=== PATIENT | female | born 1975 | race American Indian/Alaskan Native ===

== ENCOUNTER 2017-08-28 09:08 | Outpatient (CLI) | payer OTHER ==
--- NOTE | 2017-08-28 11:29 | Mammography Report ---
Bilateral Baseline digital screening mammogram with CAD. Findings: The breast parenchyma is heterogeneously dense bilaterally. In the right breast at the 3:00 position, there is a focal somewhat rounded asymmetry. No architectural distortion or suspicious microcalcifications. Impression: Left parenchymal asymmetry. BI-RADS code: 0. Recommendation: Spot compression images and ultrasound if needed.
== END 2017-08-28 09:09 | disposition home or self-care (01) ==
LOC: MAMMO 09:08
PROVIDERS: ATTEND Family Medicine
DX: Z12.31 Encounter for screening mammogram for malignant neoplasm of breast (principal)
CPT/HCPCS: 77067; G0202

== ENCOUNTER 2017-10-09 08:05 | Outpatient (CLI) | payer OTHER ==
--- NOTE | 2017-10-09 10:33 | Mammography Report ---
Spot compression magnification view and sonographic examination of circumscribed density noted at approximate 2:00 position left breast. Findings: On spot magnification view the circumscribed density is visualized and the margin is partially obscured by glandular parenchyma. No microcalcification. Sonographic examination reveals well defined hypoechoic oval mass 0.8 x 0.6 x 0.3 cm in diameter corresponding to the density seen on mammogram. This is seen at 2:00 o'clock 3 cm from nipple. 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 6 month followup recommended. BI-RADS CATEGORY: 0 = Needs additional imaging evaluation ACR BI-RADS MAMMOGRAPHIC CODES: 0 = Needs additional imaging evaluation; 1 = Negative; 2 = Benign; 3 = Probably benign; 4 = Suspicious; 5 = Malignant; 6 = Known biopsy-proven malignancy COMMENT: 1. Dense breast tissue, i.e., adenosis, fibrocystic changes, etc., may obscure an underlying neoplasm. 2. Approximately 10% of cancers are not detected with mammography. 3. A negative mammography report should not delay biopsy if a clinically suspicious mass is present.
== END 2017-10-09 08:06 | disposition home or self-care (01) ==
LOC: MAMMO 08:05
PROVIDERS: ATTEND Family Medicine
DX: R92.8 Other abnormal and inconclusive findings on diagnostic imaging of breast (principal)

== ENCOUNTER 2018-02-23 08:38 | Outpatient (CLI) | payer OTHER ==
--- NOTE | 2018-02-24 09:49 | Ultrasound Report ---
LEFT BREAST ULTRASOUND: 02/23/18 08:38:00 CLINICAL: Followup of a complex cyst versus solid mass at 2 o'clock. COMPARISON: 10/09/17 FINDINGS: Ultrasound of the left breast demonstrated a stable oval solid heterogeneous hypoechoic smooth mass at 2 o'clock 3 cm from the nipple. It measures 7 x 7 x 4 mm compared to 8 x 6 x 3 mm on the last exam. IMPRESSION: Stable 7-8 mm solid mass at 2 o'clock 3 cm from the nipple. The morphology suggests benign fibroadenoma. BI-RADS 3 - - Probably Benign RECOMMENDATION: Mammographic and ultrasound surveillance unless the patient desires a biopsy. Recommend six month followup with mammogram and ultrasound.
== END 2018-02-23 08:39 | disposition home or self-care (01) ==
LOC: US 08:38
PROVIDERS: ATTEND Family Medicine
DX: N63.20 Unspecified lump in the left breast, unspecified quadrant (principal)

== ENCOUNTER 2019-03-08 08:00 | Outpatient (CLI) | payer OTHER ==
--- NOTE | 2019-03-08 08:50 | Mammography Report ---
BILATERAL MAMMOGRAM: FINDINGS: The breast tissue is heterogeneously dense, which could obscure detection of small masses (approximately 50%-75% glandular). No mass, distortion, suspicious calcification, or skin change is seen. There is no interval change identified when compared to prior exam in August 2017. CAD was utilized. IMPRESSION: Negative mammogram. There is no mammographic evidence of malignancy. RECOMMENDATION: Follow-up per ACS guidelines. BI-RADS CATEGORY: 1 = Negative ACR BI-RADS MAMMOGRAPHIC CODES: 0 = Needs additional imaging evaluation; 1 = Negative; 2 = Benign; 3 = Probably benign; 4 = Suspicious; 5 = Malignant; 6 = Known biopsy-proven malignancy COMMENT: 1. Dense breast tissue, i.e., adenosis, fibrocystic changes, etc., may obscure an underlying neoplasm. 2. Approximately 10% of cancers are not detected with mammography. 3. A negative mammography report should not delay biopsy if a clinically suspicious mass is present. COMMENT: Patient follow-up letters are generated in [facility].
== END 2019-03-08 08:01 | disposition home or self-care (01) ==
LOC: SPVWC 08:00
PROVIDERS: ATTEND Family Medicine
DX: Z12.31 Encounter for screening mammogram for malignant neoplasm of breast (principal)
CPT/HCPCS: 77067